=== PATIENT | female | born 1995 | race Caucasian/White ===

== ENCOUNTER 2020-01-05 17:58 | Emergency (ER) | payer SELFPAY ==
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
[2020-01-05] MEDS ORDERED: ACETAMINOPHEN 325 MG TABLET PO ONE (18:15)
[2020-01-05 18:43] LABS: ABSOLUTE LYMPHOCYTES (AUTO) 2.3 10^3/uL (0.5-4.7); ABSOLUTE NEUT (AUTO) 9.9 10^3/uL (1.7-8.2); BASOPHILS % (AUTO) 0.3 % (0-2); EOSINOPHILS % (AUTO) 0.2 % (0-6); HEMATOCRIT 38.4 % (36.0-47.0); HEMOGLOBIN 13.5 g/dL (12.0-15.5); LYMPHOCYTES % (AUTO) 17.5 % (13-45); MEAN CORPUSCULAR HEMOGLOBIN 29.7 pg (27.0-33.4); MEAN CORPUSCULAR HGB CONC 35.1 g/dL (32.0-36.0); MEAN CORPUSCULAR VOLUME 85 fl (80-97); MONOCYTES % (AUTO) 7.5 % (3-13); PLATELET COUNT 309 10^3/uL (150-450); RED BLOOD COUNT 4.54 10^6/uL (3.72-5.28); RED CELL DISTRIBUTION WIDTH 13.1 % (11.5-14.0); SEGMENTED NEUTROPHILS % (AUTO) 74.5 % (42-78); TOTAL CELLS COUNTED % (AUTO) 100 %; WHITE BLOOD COUNT 13.3 10^3/uL (4.0-10.5)
[2020-01-05 18:59] LABS: ALBUMIN 4.2 g/dL (3.5-5.0); ALKALINE PHOSPHATASE 109 U/L (38-126); ANION GAP 15 (5-19); ASPARTATE AMINO TRANSFERASE 22 U/L (14-36); BILIRUBIN,DIRECT 0.3 mg/dL (0.0-0.4); BILIRUBIN,TOTAL 0.4 mg/dL (0.2-1.3); BLOOD UREA NITROGEN 10 mg/dL (7-20); CALCIUM 9.3 mg/dL (8.4-10.2); CARBON DIOXIDE 21 mmol/L (22-30); CHLORIDE 103 mmol/L (98-107); GLUCOSE 99 mg/dL (75-110); POTASSIUM 3.6 mmol/L (3.6-5.0); TOTAL PROTEIN 7.9 g/dL (6.3-8.2)
[2020-01-05] MEDS ORDERED: MORPHINE SULFATE 10 MG/ML INJ IV ONE ×2 (19:31→20:51)
[2020-01-05] MEDS ORDERED: CEFTRIAXONE INJ 1000 MG VIAL IV ONE (19:31)
[2020-01-05] MEDS ORDERED: ONDANSETRON HCL INJ/PF 4 MG/2 ML SDV IV ONE (19:31)
--- NOTE | 2020-01-05 19:36 | ER Document Report ---
ED General - General Chief Complaint: Abscess Stated Complaint: ABSCESS Time Seen by Provider: 01/05/20 18:06 Mode of Arrival: Ambulatory Notes: Patient is a 24-year-old white female with no significant past medical history who presents to the emergency department today with a chief complaint of suspected abscess formation to the top of the buttocks that began 6 days ago. She states it started off as a sore area to the top of the buttock. She states that she took a road trip over here over the next couple days and upon arrival here was sore but noticed 2 lumps to the top of the buttock. She states she tried to wait it out but had a bowel movement and when she wiped noticed blood and pus and was concerned so she came for evaluation. She states she does have some nausea and decreased appetite. She denies any known fevers chills or night sweats. She denies any abdominal pain or anal pain. TRAVEL OUTSIDE OF THE [place] IN LAST 30 DAYS: No - Related Data Allergies/Adverse Reactions: No Known Allergies Allergy (Verified 01/05/20 18:08) Past Medical History - General Information source: Patient - Social History Smoking Status: Current Every Day Smoker Chew tobacco use (# tins/day): No Frequency of alcohol use: Social Drug Abuse: Marijuana Family History: None Patient has suicidal ideation: No Patient has homicidal ideation: No Review of Systems - Review of Systems Genitourinary: Other - Buttock pain Skin: Change in color, Lumps, Rash -: Yes All other systems reviewed and negative Physical Exam - Vital signs Vitals: Temp Pulse Resp BP Pulse Ox 98.7 F 136 H 20 150/82 H 100 01/05/20 18:03 01/05/20 18:03 01/05/20 18:03 01/05/20 18:03 01/05/20 18:03 - General General appearance: Appears well, Alert In distress: None - Respiratory Respiratory status: No respiratory distress Chest status: Nontender Breath sounds: Normal Chest palpation: Normal - Cardiovascular Rhythm: Regular Heart sounds: Normal auscultation - Abdominal Inspection: Normal Distension: No distension Bowel sounds: Normal Tenderness: Nontender Organomegaly: No organomegaly - Rectal Notes: Abscess formation to the proximal gluteus near the cleft bilaterally with drainage from the left inner cleft. Diffuse tenderness to palpation. Purulence with a foul smell appreciated. No obvious extension near the rectal or anal cavity. No expanding cellulitis or proximal streaking. - Neurological Neuro grossly intact: Yes Cognition: Normal Orientation: AAOx4 Jose Coma Scale Eye Opening: Spontaneous Jose Coma Scale Verbal: Oriented [place] Coma Scale Motor: Obeys Commands [place] Coma Scale Total: 15 Speech: Normal - Psychological Associated symptoms: Normal affect, Normal mood - Skin Skin Temperature: Warm Skin Moisture: Dry Skin Color: Normal Course - Re-evaluation Re-evalutation: 01/05/20 21:51 Reevaluation of the patient at this time, she is resting comfortably in the room in no acute distress. She is remained afebrile throughout her stay here. Her heart rate is improved by my manual palpation. Her white count is minimally elevated. CAT scan showing no focal fluid collections for drainage. The infection seems to be localized to the proximal cleft area of the buttock. No concern for perirectal or perianal abscess formation. Patient received 2 g of Rocephin here and a liter of normal saline. As well as 8 of morphine total in [address] her on Bactrim and Keflex. Sent home on [place]. We discussed sitz baths and the importance of proper wound care measures. Counseled her regarding the importance of outpatient follow-up in 2 to 3 days for wound recheck and reevaluation. Advised that she return here or any ER immediately with any new, persistent or worsening symptoms. She verbalized understood and agreed. - Vital Signs Vital signs: Temp Pulse Resp BP Pulse Ox 98.7 F 114 H 20 150/82 H 100 01/05/20 18:03 01/05/20 18:20 01/05/20 18:03 01/05/20 18:03 01/05/20 18:03 - Laboratory Result Diagrams: 01/05/20 18:31 01/05/20 18:31 Laboratory results interpreted by me: 01/05/20 01/05/20 01/05/20 18:24 18:31 18:31 WBC 13.3 H Absolute Neuts (auto) 9.9 H Carbon Dioxide 21 L Urine Ketones TRACE H Leukocyte Esterase Rfl TRACE H Discharge - Discharge Clinical Impression: Abscess of buttock Condition: Stable Disposition: HOME, SELF-CARE Instructions: Abscess ([facility]) Additional Instructions: Follow-up with your regular doctor in 2 to 3 days for reevaluation. Return here or any ER immediately with any new, persistent or worsening symptoms. Prescriptions: Sulfamethoxazole/Trimethoprim [Bactrim Ds Tablet] 1 each PO BID #20 tablet Cephalexin Monohydrate [Keflex 500 mg Capsule] 500 mg PO Q6H 10 Days #40 capsule Hydrocodone/Acetaminophen [[place] 10-325 Tablet] 1 each PO Q6 PRN #12 tablet PRN Reason:
[2020-01-05 19:46] LABS: APPEARANCE,URINE SLIGHTLY-CLOUDY; BILIRUBIN,URINE NEGATIVE (NEGATIVE); COLOR,URINE YELLOW; GLUCOSE, URINE NEGATIVE (NEGATIVE); KETONES,URINE TRACE mg/dL (NEGATIVE); PROTEIN,URINE NEGATIVE (NEGATIVE); URINE SPECIFIC GRAVITY 1.023; UROBILINOGEN,URINE NEGATIVE mg/dL (<2.0)
--- NOTE | 2020-01-05 21:30 | RADIOLOGY REPORT (SQ) ---
EXAM DESCRIPTION: CT ABDOMEN PELVIS WITH IV CONTRAST COMPLETED DATE/TME: 01/05/2020 19:32 CLINICAL HISTORY: 24 years, Female, buttock abscess COMPARISON: None. TECHNIQUE: Contrast enhanced CT of the abdomen/pelvis was performed. Coronal and sagittal reformations were created. Images were obtained after the uneventful administration of 100 mL of Omnipaque 350 intravenous contrast. Images stored on PACS. All CT scanners at this facility use dose modulation, iterative reconstruction, and/or weight based dosing when appropriate to reduce radiation dose to as low as reasonably achievable (ALARA). [facility]: Dose Right [facility]: CareDose [facility]: Dose Right [facility]: Teradose 4D [facility]: Nveloped LIMITATIONS: None. FINDINGS: Limited evaluation of the lower chest reveals clear lung bases. Evaluation of the liver reveals a geographic area of hypodensity located about the left hepatic lobe adjacent to the falciform ligament, either indicating third inflow artifact or focal fatty infiltration. The liver otherwise enhances normally. The spleen, pancreas, gallbladder, and both adrenal glands appear normal. Both kidneys enhance symmetrically. There is no hydronephrosis or hydroureter. Urinary bladder is collapsed, thus its evaluation is limited. Uterus and both ovaries show no suspicious abnormality. There is a trace amount of free fluid located within the low pelvis, likely physiologic. The small and large bowel appear normal in caliber. No evidence of bowel obstruction. The appendix is normal. Vascular structures opacify with contrast normally. No suspicious lymphadenopathy is appreciated. A small focus of gas density with associated adjacent inflammatory stranding is noted about the superior aspect of the gluteal cleft. This is best visualized in image 78 of series 3. This area of gas density measures 1.4 x 0.8 cm in size. Bone windows show no destructive osseous lesions. IMPRESSION: Small focus of gas density and adjacent inflammatory stranding located about the superior aspect of the gluteal cleft, suspicious for focal infection. While there is a small focus of gas density at this location, no drainable fluid is identified at this site. No other acute findings within the abdomen/pelvis. TECHNICAL DOCUMENTATION: Quality ID # [id number]: Final reports with documentation of one or more dose reduction techniques (e.g., Automated exposure control, adjustment of the mA and/or kV according to patient size, use of iterative reconstruction technique) copyright 2011 [employer]- All Rights Reserved
[2020-01-05 22:06] VITALS: BP 98/50
== END 2020-01-05 22:05 | disposition home or self-care (01) ==
LOC: ER 17:58
DX: L02.31 Cutaneous abscess of buttock (principal); R11.0 Nausea; R63.0 Anorexia; D72.829 Elevated white blood cell count, unspecified; F17.200 Nicotine dependence, unspecified, uncomplicated; F12.10 Cannabis abuse, uncomplicated
CPT/HCPCS: 99283; 36415; 87040; 87086; 83605; 84703; 85025; 87077; 80053; 81001; 74177; J2270; J0696; J2405